=== PATIENT | male | born 1965 | race Caucasian/White ===

== ENCOUNTER 2021-05-06 16:27 | Emergency (ER) | payer OTHER ==
[2021-05-06] MEDS ORDERED: NAPROXEN500 MG PO (17:59)
== END 2021-05-06 18:47 | disposition home or self-care (01) ==
LOC: FER 16:27
DX: S00.03XA Contusion of scalp, initial encounter (principal); M79.652 Pain in left thigh; F17.210 Nicotine dependence, cigarettes, uncomplicated; V58.5XXA Driver of pick-up truck or van injured in noncollision transport accident in traffic accident, initial encounter; Y92.410 Unspecified street and highway as the place of occurrence of the external cause
CPT/HCPCS: 71101; 72040; 72100; 72170; 73552